=== PATIENT | female | born 1995 | race Caucasian/White ===

== ENCOUNTER → 2024-04-29 | Outpatient (CLI) | payer OTHER ==
--- NOTE | 2024-05-01 17:26 | US ---
EXAMINATION TYPE: US kidneys/renal and bladder DATE OF EXAM: 04/29/2024 COMPARISON: NONE CLINICAL INDICATION: Female, 29 years old with history of M54.9 DORSALGIA; Hx Kidney stones, UTIs. Fl ank pain Lt > Rt. Patient denies uncontrolled hypertension. EXAM MEASUREMENTS: Right Kidney: 7.4x4.4x4.1 cm Left Kidney: 10.0x4.0x4.7 cm Right Kidney: No hydronephrosis or masses seen Left Kidney: No hydronephrosis or masses seen Bladder: wnl Bilateral Jets seen: Yes There is no evidence for hydronephrosis at this point in time. No nephrolithiasis is seen. Corticom edullary differentiation is maintained bilaterally. No masses are identified. The urinary bladder is anechoic. Bilateral ureteral jets are seen. exam slightly limited by bowel gas IMPRESSION: No nephrolithiasis or hydronephrosis.
== END | disposition home or self-care (01) ==
LOC: RADUSWWP 06:50
PROVIDERS: ATTEND Family Medicine
DX: M54.9 Dorsalgia, unspecified (principal); Z87.442 Personal history of urinary calculi; Z87.440 Personal history of urinary (tract) infections
CPT/HCPCS: 76770